=== PATIENT | female | born 1935 | race Caucasian/White ===

== ENCOUNTER 2020-07-19 07:17 | Outpatient (CLI) | payer OTHER ==
[~2020-07-19] VITALS: Ht 172.7 cm; Wt 72.7 kg
== END 2020-07-19 12:41 | disposition home or self-care (01) ==
LOC: PREOP 07:17
PROVIDERS: ATTEND Internal Medicine
DX: Z01.818 Encounter for other preprocedural examination (principal)

== ENCOUNTER 2020-07-27 07:37 | Day surgery (SDC) | payer MEDICARE, OTHER ==
[~2020-07-27] VITALS: Ht 172.7 cm; Wt 72.7 kg
[2020-07-27] VITALS (8 sets, daily range): BP systolic 109–139; BP diastolic 56–70
[2020-07-27] MEDS ORDERED: LACTATED RINGERS 1,000 ML IV ONE (07:38)
[2020-07-27] MEDS ORDERED: PROPOFOL INJECTION 50 ML IV ONE (07:44)
--- NOTE | 2020-07-27 07:59 | Pre-Op Note & Conscious Sedat ---
Pre-Operative Progress Note H&P Reviewed The H&P was reviewed, patient examined and no changes noted. Date H&P Reviewed: July 27, 2020 Time H&P Reviewed: 07:45 Conscious Sedation Pre-Proced ASA Score 1 For ASA 3 and 4: Consider anesthesia and medical clearance. Also, for patients with a history of failed moderate sedation consider anesthesia. Airway Lungs Heart ASA score ASA 1: a normal healthy patient ASA 2: a patient with a mild systemic disease (mid diabetes, controlled hypertension, obesity ASA 3: a patient with a severe systemic disease that limits activity (angina, COPD, prior Myocardial infarction) ASA 4: a patient with an incapacitating disease that is a constant threat to life (CHF, renal failure) ASA 5: a moribund patient not expected to survive 24 hrs. (ruptured aneurysm) ASA 6: a declared brain- patient whose organs are being harvested. For emergent operations, add the letter E after the classification Mallampati Classification Grade 2 Sedation Plan Analgesia, Amnesia, Plan communicated to team members, Discussed options with patient/fam, Discussed risks with patient/fam The patient is an appropriate candidate to undergo the planned procedure, sedation, and anesthesia. The patient immediately re-assessed prior to indication. COURTNEY SEN MD July 27, 2020 07:59
[2020-07-27] MEDS ORDERED: LIDOCAINE JELLY 2% 6 ML SYRINGE TOP ONE (08:15)
[2020-07-27] MEDS ORDERED: LACTATED RINGERS 1,000 ML IV SCH (08:15)
[2020-07-27] MEDS ORDERED: LIDOCAINE JELLY 2% 6 ML SYRINGE ONE (08:17)
--- NOTE | 2020-07-27 12:34 | OPERATIVE REPORT ---
DATE OF SERVICE: COLONOSCOPY SUMMARY INDICATION FOR THE PROCEDURE: Screening colonoscopy with family history for colon cancer. DESCRIPTION OF PROCEDURE: The patient was placed in the left lateral decubitus position. Prior to undergoing colonoscopy, digital rectal evaluation was performed. Anal sphincter tone was normal. Perianal reflex was intact. No abnormalities were noted on digital inspection of the anal canal or distal rectal vault. The colonoscope was then inserted into the rectum and under direct visualization advanced to the cecum. The cecum was identified by identification of ileocecal valve and cecal strap. Photographic documentation was obtained. The quality of prep was fair. FINDINGS: There was no evidence for internal or external hemorrhoids. The rectum, sigmoid colon, descending colon, splenic flexure, transverse colon, hepatic flexure, ascending colon and cecum were unremarkable with no evidence for neoplasia or diverticular disease. No vascular malformation was noted. ASSESSMENT: Normal colonoscopy to the cecum. Despite family history, considering this patient's age, would not advocate future screening colonoscopy. I thank you for the referral of this pleasant lady. Job ID: [id number] DocumentID: [id number] Dictated Date: 07/27/2020 09:04:24 Door To Door Salesperson Date: 07/27/2020 12:33:57 Dictated By: COURTNEY SEN MD
--- NOTE | 2020-07-27 14:34 | Anesthesia-General Post-Op ---
MAC Patient Condition Mental Status/LOC: Same as Preop Cardiovascular: Satisfactory Nausea/Vomiting: Absent Respiratory: Satisfactory Pain: Controlled Complications: Absent Post Op Complications Complications None Follow Up Care/Instructions Patient Instructions None needed. Anesthesiology Discharge Order Discharge Order Patient is doing well, no complaints, stable vital signs, no apparent adverse anesthesia problems. No complications reported per nursing. JOSE F WELLINGTON CRNA July 27, 2020 14:34
--- NOTE | 2020-08-02 10:15 | HISTORY AND PHYSICAL ---
COLONOSCOPY HISTORY AND PHYSICAL HISTORY OF PRESENT ILLNESS: The patient is a spry 84-year-old white female referred for screening colonoscopy. She is deemed to be higher than average risk as her mother was diagnosed with colon cancer in her early 70s, at the age of 83 despite being a heavy smoker. The patient was last accomplished colonoscopy in 2011 at which time only one hyperplastic polyp was noted and removed. She states that she continues to enjoy good health and is currently taking no prescription medication. PAST MEDICAL HISTORY: Significant for adenomatous colonic polyps. She had an elevated LDL cholesterol level reportedly, but has not taken medication and has had no history of vascular disease. PAST SURGICAL HISTORY: She had appendectomy performed in 1949 and lung biopsy for what turned out to be a benign nodule in 1987 and had oophorectomy in 1979. FAMILY HISTORY: Other than her mother's diagnosis of colon cancer. Father of a heart attack in his late 80s. Had one sister with a heart attack in her 80s, still living and has one son with type 2 diabetes mellitus. Other 3 children have no reported health problems. SOCIAL HISTORY: She is retired with no past drinking or smoking history. REVIEW OF SYSTEMS: CONSTITUTIONAL: She denies night sweats, chills, fever, change in weight or energy level. CARDIOVASCULAR: The patient denies chest pain, dyspnea on exertion, orthopnea, PND, pedal edema or change in exercise tolerance. PULMONARY: The patient denies cough, wheezing or shortness of breath. GASTROINTESTINAL: The patient denies change in bowel habits, abdominal pain, melena or bright red blood per rectum, dysphagia or heartburn. PHYSICAL EXAMINATION: GENERAL: Reveals a white female, appearing younger than her stated age, in no acute distress. VITAL SIGNS: Blood pressure 120/80, heart rate 72 and regular, weight 161 pounds. HEENT: Unremarkable. CHEST: Clear to auscultation. CARDIOVASCULAR: Reveals a regular rate and rhythm without murmur, S3 or S4. ABDOMEN: Soft, supple without mass, organomegaly or tenderness. No evidence for distention is noted and no pain to palpation is noted. EXTREMITIES: Reveal no cyanosis, clubbing or edema. ASSESSMENT AND PLAN: The patient was set up for screening colonoscopy on 07/27/2020. Prep instructions with the Suprep kit were given and questions were answered. I thank you for the referral of this pleasant lady. Job ID: [id number] DocumentID: [id number] Dictated Date: 07/03/2020 14:20:32 Research And Development Researcher Date: 07/03/2020 14:40:32 Dictated By: COURTNEY SEN MD <Dictated by COURTNEY SEN MD> <Electronically signed by COURTNEY SEN MD> 07/25/20 1641 [facility]
== END 2020-07-27 10:10 | disposition home or self-care (01) ==
LOC: ENDO 07:37
PROVIDERS: ATTEND Internal Medicine
DX: Z12.11 Encounter for screening for malignant neoplasm of colon (principal); Z80.0 Family history of malignant neoplasm of digestive organs

== ENCOUNTER → 2021-01-08 | Outpatient (CLI) | payer MEDICARE ==
--- NOTE | 2021-01-08 14:52 | Diagnostic Imaging Report ---
INDICATION: Postmenopausal COMPARISON: None FINDINGS: The total T score for the spine is -2.2. The T score for the left femoral neck is -2.3 and the right femoral neck -2.1. These values do indicate severe osteopenia. The T score for the left hip is -1.6 and for the right hip -1.7. These T-scores are within the range of osteopenia. AP Spine L1-L4: [BMD (g/cm2): 0.924] [T-Score: -2.3] [Z-Score: -0.7] [BMD Previous: na] [BMD % Change: na] LT Hip Neck: [BMD (g/cm2): 0.723] [T-Score: -2.3] [Z-Score: -0.1] LT Hip Total: [BMD (g/cm2):0.808] [T-Score:-1.6] [Z-Score: 0.4] [BMD Previous: na] [BMD % Change: na] RT Hip Neck: [BMD (g/cm2):0.741] [T-Score:-2.1] [Z-Score:0.0] RT Hip Total: [BMD (g/cm2):0.799] [T-score:-1.7] [Z-Score:0.3] [BMD Previous:na] [BMD % Change:na] *Indicates significant change from prior examination based on 95% confidence level. World Health Organization criteria for BMD interpretation classify patients as Normal (T-score at or above -1.0), Osteopenic (T-score between -1.0 and -2.5) or Osteoporotic (T-score at or below -2.5). LIMITATIONS AND MODIFICATION: None. FRACTURE RISK (FRAX SCORE): The ten year probability of (%): Major Osteoporotic Fracture: [17.4] Hip Fracture: [6.0] IMPRESSION: 1. There is severe osteopenia of the spine and the femoral necks. Osteopenia of both hips is also noted. 2. 3. See below National Osteoporosis Foundation guidelines on when to potentially initiate pharmacologic therapy. Based on the National Osteoporosis Foundation Guidelines, pharmacologic treatment should be initiated in any of the following, unless clinical conditions suggest otherwise: * Any patient with prior fragility fracture of the hip or vertebrae. A spine fracture indicates 5X risk for subsequent spine fracture and 2X risk for subsequent hip fracture. * Osteoporosis (T-score <-2.5). * Postmenopausal women and men age 50 and older with low bone mass/osteopenia (T-score between -1.0 and -2.5) by DXA and 10-year major osteoporotic fracture greater than 20% or a 10-year probability of hip fracture greater than 3%. These fracture risks are supplied above in the FRAX score, if applicable. * Clinician judgement and/or patient preferences may indicate treatment for people with 10-year fracture probabilities above or below these levels. Dictated by: Dictated on workstation # [id number]
== END ==
LOC: RAD 13:13
PROVIDERS: ATTEND Family Medicine
DX: Z12.31 Encounter for screening mammogram for malignant neoplasm of breast (principal); M85.80 Other specified disorders of bone density and structure, unspecified site; Z78.0 Asymptomatic menopausal state
CPT/HCPCS: 77063; 77067; 77080

== ENCOUNTER → 2022-01-10 | Outpatient (CLI) | payer MEDICARE ==
--- NOTE | 2022-01-10 12:20 | Diagnostic Imaging Report ---
INDICATION: Routine screening. Comparison is made with prior mammogram 01/08/2021 and 11/16/2018. 2-D and 3-D bilateral screening mammography was performed with CAD. CAD is utilized. The current study was also evaluated with a Computer Aided Detection (CAD) system. Scattered fibroglandular densities are identified bilaterally. The previously noted circumscribed nodule in the right breast is stable. No spiculated mass or malignant-appearing microcalcifications are seen. Axillae are unremarkable. IMPRESSION: BI-RADS Category 2 No mammographic features suspicious for malignancy are identified. ACR BI-RADS Category 2: Benign findings. Result letter will be mailed to the patient. Note: At least 10% of breast cancer is not imaged by mammography. Dictated by: Dictated on workstation # [id number]
== END ==
LOC: RAD 10:41
PROVIDERS: ATTEND Nurse Practitioner Family
DX: Z12.31 Encounter for screening mammogram for malignant neoplasm of breast (principal)
CPT/HCPCS: 77063; 77067